=== PATIENT | female | born 1970 | race Caucasian/White ===

== ENCOUNTER 2017-11-13 23:22 | Emergency (ER) | payer OTHER ==
[~2017-11-13] VITALS: Ht 160 cm; Wt 61.4 kg
[~2017-11-13 23:22] MED LIST: NOCURR
[2017-11-14] MEDS ORDERED: KETOROLAC TROMETHAMINE 60 MG/2 ML VIAL IM ONE (01:00)
[2017-11-14] MEDS ORDERED: CYCLOBENZAPRINE HCL 10 MG TABLET PO ONE (01:00)
[2017-11-14 02:30] VITALS: BP 121/68
== END 2017-11-14 02:48 | disposition home or self-care (01) ==
LOC: EMS 23:22
DX: S16.1XXA Strain of muscle, fascia and tendon at neck level, initial encounter (principal); S46.912A Strain of unspecified muscle, fascia and tendon at shoulder and upper arm level, left arm, initial encounter; M77.11 Lateral epicondylitis, right elbow; V49.40XA Driver injured in collision with unspecified motor vehicles in traffic accident, initial encounter; Y93.89 Activity, other specified; Y92.89 Other specified places as the place of occurrence of the external cause; Y99.8 Other external cause status
CPT/HCPCS: 29240; 96372; 99283; J1885

== ENCOUNTER 2021-03-18 11:54 | Emergency (ER) | payer OTHER ==
[~2021-03-18] VITALS: Ht 162.6 cm; Wt 59.1 kg
[2021-03-18 12:37] VITALS: BP 139/76
== END 2021-03-18 14:13 | disposition home or self-care (01) ==
LOC: EMS 11:58
DX: S13.4XXA Sprain of ligaments of cervical spine, initial encounter (principal); Z90.89 Acquired absence of other organs; V49.9XXA Car occupant (driver) (passenger) injured in unspecified traffic accident, initial encounter; Y93.89 Activity, other specified; Y92.89 Other specified places as the place of occurrence of the external cause; Y99.8 Other external cause status
CPT/HCPCS: 99283; Z7502